=== PATIENT | female | born 1955 | race Two or more races ===

== ENCOUNTER 2018-02-25 12:07 | Inpatient (IN) | payer OTHER ==
[~2018-02-25] VITALS: Ht 160 cm; Wt 95.3 kg
[~2018-02-25 12:07] MED LIST: B COMPLEX WITH1 EACH; CARDURA XL4 MG/BOTTL; LASIX40 MG; LYRICA150 MG; SYNTHROID137 MCG; ZYLOPRIM300 MG
[2018-02-25] MEDS ORDERED: AMBIEN10 MG (12:50)
[2018-02-25] MEDS ORDERED: AVALIDE 300-121 EACH (12:50)
[2018-02-25] MEDS ORDERED: SEROQUEL25 MG (12:51)
== END 2018-03-08 11:00 | disposition home or self-care (01) | DRG 603 ==
LOC: ER 12:07 → MEDI 18:12 → SEC-K 18:12 → MEDI 19:20
PROC: 3E0F7GC Introduction of Other Therapeutic Substance into Respiratory Tract, Via Natural or Artificial Opening (ICD-10-PCS; principal; 2018-02-25)
PROC: 4A033R1 Measurement of Arterial Saturation, Peripheral, Percutaneous Approach (ICD-10-PCS; 2018-02-25)
PROC: BW28ZZZ Computerized Tomography (CT Scan) of Head (ICD-10-PCS; 2018-02-25)
PROC: 30233N1 Transfusion of Nonautologous Red Blood Cells into Peripheral Vein, Percutaneous Approach (ICD-10-PCS; 2018-02-26)
PROC: 02HV33Z Insertion of Infusion Device into Superior Vena Cava, Percutaneous Approach (ICD-10-PCS; 2018-02-28)
PROC: CP1Z1ZZ Planar Nuclear Medicine Imaging of Musculoskeletal System, All using Technetium 99m (Tc-99m) (ICD-10-PCS; 2018-02-28)
PROC: CW1NLZZ Planar Nuclear Medicine Imaging of Whole Body using Gallium 67 (Ga-67) (ICD-10-PCS; 2018-03-03)
DX: L03.116 Cellulitis of left lower limb (principal); J44.1 Chronic obstructive pulmonary disease with (acute) exacerbation; J45.31 Mild persistent asthma with (acute) exacerbation; N18.4 Chronic kidney disease, stage 4 (severe); N39.0 Urinary tract infection, site not specified; F31.89 Other bipolar disorder; I12.9 Hypertensive chronic kidney disease with stage 1 through stage 4 chronic kidney disease, or unspecified chronic kidney disease; E03.8 Other specified hypothyroidism; B96.29 Other Escherichia coli [E. coli] as the cause of diseases classified elsewhere; F44.89 Other dissociative and conversion disorders; D63.1 Anemia in chronic kidney disease; B95.62 Methicillin resistant Staphylococcus aureus infection as the cause of diseases classified elsewhere; T50.995A Adverse effect of other drugs, medicaments and biological substances, initial encounter; Y92.098 Other place in other non-institutional residence as the place of occurrence of the external cause

== ENCOUNTER 2018-07-17 13:07 | Outpatient (CLI) | payer OTHER ==
[~2018-07-17 13:07] MED LIST changes: +AMBIEN10 MG; +AVALIDE 300-121 EACH; +SEROQUEL25 MG
== END 2018-07-17 13:11 | disposition home or self-care (01) ==
LOC: SONOGRAMA 13:07
DX: E04.1 Nontoxic single thyroid nodule (principal)

== ENCOUNTER 2018-07-21 09:14 | Outpatient (CLI) | payer OTHER | END 2018-07-21 17:00 | disposition home or self-care (01) | LOC: RX STUDY 09:14 | DX: R13.19 Other dysphagia (principal) ==

== ENCOUNTER 2018-10-03 16:34 | Emergency (ER) | payer OTHER ==
[~2018-10-03] VITALS: Ht 162.6 cm; Wt 106.6 kg
== END 2018-10-03 23:16 | disposition home or self-care (01) ==
LOC: ER 16:34
DX: R47.81 Slurred speech (principal); R53.1 Weakness; R42 Dizziness and giddiness; F20.89 Other schizophrenia; T50.995A Adverse effect of other drugs, medicaments and biological substances, initial encounter; Y92.89 Other specified places as the place of occurrence of the external cause

== ENCOUNTER 2019-12-21 15:22 | Inpatient (IN) | payer OTHER ==
[~2019-12-21] VITALS: Ht 162.6 cm; Wt 102.1 kg
[2019-12-21] MEDS ORDERED: VITAMIN B122500 MCG (15:40)
[2019-12-21] MEDS ORDERED: VITAMIN C500 MG (15:41)
== END 2019-12-23 17:30 | disposition home or self-care (01) | DRG 683 ==
LOC: ER 15:22 → SURG 17:43 → SEC-K 17:43 → SURG 12-22 00:32 → SEC-K 12-22 00:42 → SURG 12-22 01:34 → SEC-K 12-22 14:12 → SURG 12-22 14:14
PROVIDERS: ADMIT Internal Medicine Cardiovascular Disease; ATTEND Internal Medicine Cardiovascular Disease
PROC: BT43ZZZ Ultrasonography of Bilateral Kidneys (ICD-10-PCS; principal; 2019-12-22)
DX: N17.9 Acute kidney failure, unspecified (principal); E87.1 Hypo-osmolality and hyponatremia; L97.829 Non-pressure chronic ulcer of other part of left lower leg with unspecified severity; F31.30 Bipolar disorder, current episode depressed, mild or moderate severity, unspecified; I50.9 Heart failure, unspecified; J44.9 Chronic obstructive pulmonary disease, unspecified; D64.9 Anemia, unspecified; E87.5 Hyperkalemia; I73.9 Peripheral vascular disease, unspecified; E03.9 Hypothyroidism, unspecified; N18.3 Chronic kidney disease, stage 3 (moderate); E11.21 Type 2 diabetes mellitus with diabetic nephropathy; Z79.4 Long term (current) use of insulin; I11.0 Hypertensive heart disease with heart failure; E11.22 Type 2 diabetes mellitus with diabetic chronic kidney disease; E66.9 Obesity, unspecified

== ENCOUNTER 2020-02-11 01:25 | Inpatient (IN) | payer OTHER ==
[~2020-02-11] VITALS: Ht 157.5 cm; Wt 104.3 kg
[~2020-02-11 01:25] MED LIST changes: +VITAMIN B122500 MCG; +VITAMIN C500 MG
== END 2020-02-25 17:09 | disposition home health service (06) | DRG 872 ==
LOC: ER 01:25 → SEC-K 06:33 → SURH 19:03
PROVIDERS: ADMIT Internal Medicine Cardiovascular Disease; ATTEND Internal Medicine Cardiovascular Disease
PROC: 3E0F7GC Introduction of Other Therapeutic Substance into Respiratory Tract, Via Natural or Artificial Opening (ICD-10-PCS; principal; 2020-02-11)
PROC: 8E0ZXY6 Isolation (ICD-10-PCS; 2020-02-11)
PROC: BT4JZZZ Ultrasonography of Kidneys and Bladder (ICD-10-PCS; 2020-02-11)
PROC: 0T9B70Z Drainage of Bladder with Drainage Device, Via Natural or Artificial Opening (ICD-10-PCS; 2020-02-11)
PROC: B24BZZZ Ultrasonography of Heart with Aorta (ICD-10-PCS; 2020-02-12)
PROC: 02HV33Z Insertion of Infusion Device into Superior Vena Cava, Percutaneous Approach (ICD-10-PCS; 2020-02-23)
DX: A41.01 Sepsis due to Methicillin susceptible Staphylococcus aureus (principal); J44.1 Chronic obstructive pulmonary disease with (acute) exacerbation; N17.9 Acute kidney failure, unspecified; E87.1 Hypo-osmolality and hyponatremia; F20.89 Other schizophrenia; L97.422 Non-pressure chronic ulcer of left heel and midfoot with fat layer exposed; L03.116 Cellulitis of left lower limb; E87.2 Acidosis; J45.31 Mild persistent asthma with (acute) exacerbation; I12.9 Hypertensive chronic kidney disease with stage 1 through stage 4 chronic kidney disease, or unspecified chronic kidney disease; N18.3 Chronic kidney disease, stage 3 (moderate); I08.1 Rheumatic disorders of both mitral and tricuspid valves; B95.61 Methicillin susceptible Staphylococcus aureus infection as the cause of diseases classified elsewhere; B95.2 Enterococcus as the cause of diseases classified elsewhere; R65.20 Severe sepsis without septic shock; E66.09 Other obesity due to excess calories; G47.33 Obstructive sleep apnea (adult) (pediatric); E03.8 Other specified hypothyroidism; E86.0 Dehydration; F60.1 Schizoid personality disorder; D64.9 Anemia, unspecified; Z03.818 Encounter for observation for suspected exposure to other biological agents ruled out

== ENCOUNTER → 2020-03-20 | Emergency (ER) | payer OTHER | END | disposition left against medical advice (07) | LOC: ER 11:35 | DX: Z53.20 Procedure and treatment not carried out because of patient's decision for unspecified reasons (principal) ==

== ENCOUNTER 2020-09-22 09:24 | Emergency (ER) | payer OTHER ==
[~2020-09-22] VITALS: Ht 165.1 cm; Wt 102.1 kg
[2020-09-22] MEDS ORDERED: ZYLOPRIM100 M1 (09:50)
[2020-09-22] MEDS ORDERED: JANUVIA25 MG (09:51)
[2020-09-22] MEDS ORDERED: INTEGRA F CAPS1 EACH (09:51)
[2020-09-22] MEDS ORDERED: GEMFIBROZIL600 MG (09:52)
[2020-09-22] MEDS ORDERED: NEXIUM10 MG (09:52)
[2020-09-22] MEDS ORDERED: PROTONIX20 MG (09:52)
[2020-09-22] MEDS ORDERED: RELAFEN DS1000 MG (09:53)
[2020-09-22] MEDS ORDERED: INTESTINEX680 M1 (09:53)
[2020-09-22] MEDS ORDERED: CARDURA XL4 MG (09:53)
[2020-09-22] MEDS ORDERED: LYRICA200 MG (09:54)
[2020-09-22] MEDS ORDERED: NEURONTIN300 MG (09:54)
[2020-09-22] MEDS ORDERED: CLONAZEPAM2 MG (09:54)
[2020-09-22] MEDS ORDERED: SEROQUEL400 MG (09:55)
== END 2020-09-22 19:57 | disposition home or self-care (01) ==
LOC: ER 09:24
DX: K52.89 Other specified noninfective gastroenteritis and colitis (principal); R42 Dizziness and giddiness; R41.0 Disorientation, unspecified; Z03.818 Encounter for observation for suspected exposure to other biological agents ruled out

== ENCOUNTER 2022-03-10 03:52 | Emergency (ER) | payer OTHER ==
[~2022-03-10] VITALS: Ht 160 cm; Wt 108.9 kg
[~2022-03-10 03:52] MED LIST changes: +CARDURA XL4 MG; +CLONAZEPAM2 MG; +GEMFIBROZIL600 MG; +INTEGRA F CAPS1 EACH; +INTESTINEX680 M1; +JANUVIA25 MG; +LYRICA200 MG; +NEURONTIN300 MG; +NEXIUM10 MG; +PROTONIX20 MG; +RELAFEN DS1000 MG; +SEROQUEL400 MG; +ZYLOPRIM100 M1
[2022-03-10] MEDS ORDERED: PEPCID AC20 MG PO (07:52)
== END 2022-03-10 08:00 | disposition home or self-care (01) ==
LOC: ER 03:52
DX: A05.9 Bacterial foodborne intoxication, unspecified (principal); R11.2 Nausea with vomiting, unspecified; D64.9 Anemia, unspecified; N18.9 Chronic kidney disease, unspecified; E16.2 Hypoglycemia, unspecified

== ENCOUNTER 2022-06-07 09:56 | Outpatient (CLI) | payer OTHER ==
[~2022-06-07 09:56] MED LIST changes: +PEPCID AC20 MG PO
== END 2022-06-07 10:05 | disposition home or self-care (01) ==
LOC: NUCLEAR 09:56
PROVIDERS: ATTEND Surgery
DX: I73.9 Peripheral vascular disease, unspecified (principal)

== ENCOUNTER 2022-06-08 09:18 | Outpatient (CLI) | payer OTHER | END 2022-06-08 09:43 | disposition home or self-care (01) | LOC: NUCLEAR 09:18 | PROVIDERS: ATTEND Surgery | DX: I87.2 Venous insufficiency (chronic) (peripheral) (principal) ==

== ENCOUNTER 2022-06-15 09:19 | Outpatient (CLI) | payer OTHER | END 2022-06-15 12:22 | disposition home or self-care (01) | LOC: RAD 09:19 | PROVIDERS: ATTEND Surgery | DX: M79.605 Pain in left leg (principal) ==

== ENCOUNTER → 2022-10-19 | Outpatient (CLI) | payer OTHER | END | disposition home or self-care (01) | LOC: NUCLEAR 10:00 | PROVIDERS: ATTEND Internal Medicine Cardiovascular Disease | DX: I13.0 Hypertensive heart and chronic kidney disease with heart failure and stage 1 through stage 4 chronic kidney disease, or unspecified chronic kidney disease (principal); I50.9 Heart failure, unspecified; E78.2 Mixed hyperlipidemia; M18.32 Unilateral post-traumatic osteoarthritis of first carpometacarpal joint, left hand; N18.31 Chronic kidney disease, stage 3a ==